=== PATIENT | male | born 1960 | race Caucasian/White ===

== ENCOUNTER → 2018-03-27 | Outpatient (CLI) | payer BC ==
[~2018-03-27] VITALS: Ht 180.3 cm; Wt 87.1 kg
[~2018-03-27] MED LIST: ALLOPURINOL 30300 M1 PO; CALCIUM 500 +1 EAC5 PO; GLUCOPHAGE XR500 MG PO; LISINOPRIL10 MG PO; LORTAB 5 MG/5001 TA1 PO; MAGOX 400400 MG PO; OMEPRAZOLE40 MG PO; TRICOR145 MG PO; VOLTAREN GEL 1100 G2 TOP
== END | disposition home or self-care (01) ==
LOC: GI 03-22 15:23
DX: Z12.11 Encounter for screening for malignant neoplasm of colon (principal); Z86.010 Personal history of colon polyps; Z80.0 Family history of malignant neoplasm of digestive organs; K57.30 Diverticulosis of large intestine without perforation or abscess without bleeding; K64.8 Other hemorrhoids; K21.9 Gastro-esophageal reflux disease without esophagitis; I10 Essential (primary) hypertension; G47.33 Obstructive sleep apnea (adult) (pediatric); M10.9 Gout, unspecified; Z79.899 Other long term (current) drug therapy; Z98.890 Other specified postprocedural states; Z87.891 Personal history of nicotine dependence; Z90.3 Acquired absence of stomach [part of]
CPT/HCPCS: 62110; 62900